=== PATIENT | female | born 2000 | race Caucasian/White ===

== ENCOUNTER 2020-07-21 21:37 | Emergency (ER) | payer OTHER ==
[~2020-07-21] VITALS: Ht 165.1 cm; Wt 72.0 kg
[2020-07-21] MEDS ORDERED: ONDANSETRON 2MG/ML, 2ML ONE (21:56)
[2020-07-21] MEDS ORDERED: SODIUM CHLORIDE FLUSH 10ML SYR IVF ONE (22:00)
[2020-07-21] MEDS ORDERED: SODIUM CHLORIDE 0.9% 1,000ML IVBOLUS ONE (22:00)
[2020-07-21] MEDS ORDERED: ONDANSETRON 2MG/ML, 2ML IVPush ONE (22:00)
[2020-07-21 22:28] LABS: BASOPHILS % (AUTO) 0 % (0-1); EOSINOPHILS % (AUTO) 1 % (1-7); LYMPHOCYTES % (AUTO) 8 % (22-44); MEAN CORPUSCULAR HGB CONC 33.4 g/dL (32.4-35.8); MONOCYTES % (AUTO) 5 % (2-9); NEUTROPHILS % (AUTO) 86 % (42-75); PLATELET COUNT 299 x10^3/uL (130-400); RED CELL DISTRIBUTION WIDTH 12.5 % (9.6-15.2)
[2020-07-21 22:29] LABS: MD NO
[2020-07-21 22:53] LABS: ALANINE AMINOTRANSFERASE 24 U/L (12-78); ALBUMIN 3.8 g/dL (3.4-5.0); ANION GAP 9 mmol/L (5-15); CALCIUM 8.8 mg/dL (8.5-10.1); CHLORIDE 105 mmol/L (98-107); CREATININE 0.79 mg/dL (0.55-1.02)
[2020-07-21 22:57] LABS: ALKALINE PHOSPHATASE 50 U/L (45-117); BILIRUBIN,TOTAL 0.6 mg/dL (0.2-1.0); TOTAL PROTEIN 7.3 g/dL (6.4-8.2)
--- NOTE | 2020-07-21 23:11 | NUR ---
PT STATES "I FEEL SO MUCH BETTER. ROBYN GOT [place]IR[place] ON TV AND IM RELAXING IN BED". PTS ROOMATE AT BEDSIDE. PT SPEAKING CLEARLY, NO SLURRING OF WORDS. ANSWERING ORIENTATION QUESTIONS APPROPIATELY.
--- NOTE | 2020-07-21 23:46 | NUR ---
PT UP TO RESTROOM. HAS STEADY INDEPENDENT GAIT.
[2020-07-22 00:26] VITALS: BP 105/52
--- NOTE | 2020-07-22 00:27 | NUR ---
DISCHARGED FOR PRIMARY RN. PT IS A&O X4. VS STABLE. PT IS ABLE TO SAFELY AMBULATE AROUND ROOM. PT HAS A RIDE HOME FROM A FRIEND. PT DISCHARGED PER ELAINE Garnett NP.
== END 2020-07-22 00:29 | disposition home or self-care (01) ==
LOC: ED 22:07
DX: F10.129 Alcohol abuse with intoxication, unspecified (principal); F12.129 Cannabis abuse with intoxication, unspecified; R11.2 Nausea with vomiting, unspecified; Y90.0 Blood alcohol level of less than 20 mg/100 ml
CPT/HCPCS: 36415; 80053; 80320; 84703; 85025; 96361; 96374; 99283; J2405; J7030; G0480